=== PATIENT | female | born 1945 | race Caucasian/White ===

== ENCOUNTER → 2016-12-23 | Outpatient (REF) | payer MEDICARE, OTHER ==
[2016-12-23 13:42] LABS: CONTROL LINE MONO INT CTR LINE PRESENT
== END ==
LOC: M LAB REF 13:18
PROVIDERS: ATTEND Nurse Practitioner Family
DX: R53.83 Other fatigue (principal)

== ENCOUNTER → 2017-06-07 | Outpatient (CLI) | payer MEDICARE, OTHER ==
--- NOTE | 2017-06-07 15:57 | REPMRS ---
Patient History The patient states she has not had a clinical breast exam in over a year. Patient is postmenopausal. Family history of breast cancer in maternal aunt at age 50 or over, breast cancer in maternal grandmother at age 50 or over, and prostate cancer in brother at age 50 or over. 2 benign cyst aspirations of the left breast. Taking estrogen for 2 years 4 months. Digital Woman Screen Mammo: June 07, 2017 - Exam #: [id number] Bilateral CC and MLO view(s) were taken. Technologist: Dana Gonzales, Technologist Prior study comparison: June 02, 2016, digital woman screen mammo performed at [facility]. June 10, 2015, digital woman screen mammo performed at [facility] [employer] [facility]. June 09, 2014, digital woman screen mammo performed at [facility]. FINDINGS: There are scattered fibroglandular densities. There has been no change in the appearance of the mammogram from the prior studies. There is a mild amount of scattered fibroglandular density which is fairly symmetric. There is no interval development of dominant mass, architectural distortion, or clustered microcalcification suggestive of malignancy. ASSESSMENT: BI-RADS/ACR category 1 mammogram. Negative. Recommendation Routine screening mammogram in 1 year (for women over age 40). This mammogram was interpreted with the aid of an FDA-approved computer-aided dectection system. Electronically Signed By: Papo Russell MD 06/07/17 [id number]
== END ==
LOC: M WHC 13:45
PROVIDERS: ATTEND Internal Medicine
DX: Z12.31 Encounter for screening mammogram for malignant neoplasm of breast (principal); Z80.3 Family history of malignant neoplasm of breast; Z78.0 Asymptomatic menopausal state; Z80.42 Family history of malignant neoplasm of prostate; Z79.890 Hormone replacement therapy

== ENCOUNTER 2017-09-08 06:41 | Day surgery (SDC) | payer MEDICARE, OTHER ==
[2017-09-08] MEDS ORDERED: PROPOFOL 500 MG/50 ML VIAL As Ordered (06:56)
[2017-09-08] MEDS: NS 1,000 ML IV (07:00)
[2017-09-08] MEDS ORDERED: LIDOCAINE 2% INJ 100 MG/5 ML SDV (FOR ANES.) As Ordered (07:05)
== END 2017-09-08 08:23 | disposition home or self-care (01) ==
LOC: M OPP 06:41
DX: R93.3 Abnormal findings on diagnostic imaging of other parts of digestive tract (principal); Z86.010 Personal history of colon polyps; K64.0 First degree hemorrhoids; K21.9 Gastro-esophageal reflux disease without esophagitis; R12 Heartburn; K22.8 Other specified diseases of esophagus; K44.9 Diaphragmatic hernia without obstruction or gangrene; K57.30 Diverticulosis of large intestine without perforation or abscess without bleeding; K64.8 Other hemorrhoids; I10 Essential (primary) hypertension; E78.5 Hyperlipidemia, unspecified; M19.90 Unspecified osteoarthritis, unspecified site; F41.9 Anxiety disorder, unspecified; R51 Headache; Z78.0 Asymptomatic menopausal state; Z88.8 Allergy status to other drugs, medicaments and biological substances; Z79.82 Long term (current) use of aspirin; Z79.899 Other long term (current) drug therapy; Z80.0 Family history of malignant neoplasm of digestive organs; Z80.42 Family history of malignant neoplasm of prostate
CPT/HCPCS: 45378

== ENCOUNTER 2017-11-09 19:58 | Observation (INO) | payer MEDICARE, OTHER ==
[2017-11-09] MEDS: PERCOCET 5MG/325MG TAB PO ×2 (20:38)
[2017-11-09 20:59] LABS: AMORPHOUS SEDIMENT SMALL (NEGATIVE); APPEARANCE, URINE CLOUDY (CLEAR); BACTERIA, URINE AUTO NEGATIVE (NEGATIVE); BILIRUBIN, URINE AUTO NEGATIVE (NEGATIVE); BLOOD, URINE BLOOD NEGATIVE (NEGATIVE); COLOR, URINE YELLOW (YELLOW); GLUCOSE, URINE (UA) AUTO NEGATIVE (NEGATIVE); KETONE, URINE AUTO NEGATIVE (NEGATIVE); LEUKOCYTE ESTERASE, URINE AUTO TRACE (NEGATIVE); MUCUS, URINE SMALL (NEGATIVE); NITRITE, URINE AUTO NEGATIVE (NEGATIVE); PROTEIN, URINE AUTO NEGATIVE (NEGATIVE); RBC, URINE AUTO 2 /HPF (0-3); SPECIFIC GRAVITY URINE AUTO 1.012 (1.002-1.035); SQUAMOUS EPITHELIAL CELL UR AU 0 /HPF (0-6); UROBILINOGEN, URINE AUTO 0.2 mg/dL (0.0-2.0); WBC, URINE AUTO 2 /HPF (0-3)
[2017-11-09] MEDS: CYCLOBENZAPRINE 10 MG TAB PO ×2 (22:37)
[2017-11-09] MEDS: MORPHINE 4 MG/ML 1ML VIAL (J2270) IV ×2 (22:38)
[2017-11-09] MEDS: ONDANSETRON 4MG/2ML VIAL (J2405) IV ×2 (23:22)
[2017-11-10] MEDS ORDERED: ONDANSETRON 4 MG TAB (S0181) PO ×2
[2017-11-10] MEDS: fentaNYL 100 MCG/2 ML INJECTION (J3010) IV ×10 (00:25→08:00)
[2017-11-10] MEDS: METOCLOPRAMIDE INJ 10MG/2ML VIAL (J2765) IV ×2 (00:25)
[2017-11-10] MEDS: NS 1,000 ML IV ×6 (00:26→21:04)
[2017-11-10] MEDS: METOCLOPRAMIDE 10 MG TAB PO ×2 (04:44)
[2017-11-10] MEDS: HEPARIN SOD (PORCINE) 5000 UNITS/ML VIAL SC ×6 (06:00→21:04)
[2017-11-10] MEDS: ONDANSETRON 4MG/2ML VIAL (J2405) IV ×4 (09:19→14:53)
[2017-11-10] MEDS: MULTIVITAMINS/MINERALS THERAP 1 TAB PO ×2 (09:20)
[2017-11-10] MEDS: KETOROLAC 30 MG/ML VIAL (J1885) IV ×6 (09:20→21:03)
[2017-11-10] MEDS: PANTOPRAZOLE 40MG TAB (PROTONIX) PO ×2 (09:20)
[2017-11-10] MEDS: VERAPAMIL 40 MG TAB PO ×4 (09:21→21:04)
[2017-11-10] MEDS: ASCORBIC ACID 500 MG TAB PO ×2 (09:21)
[2017-11-10] MEDS: OMEGA-3 1050MG CAPSULE PO ×2 (09:21)
[2017-11-10] MEDS: ASPIRIN 81 MG ENTERIC TAB PO ×2 (09:21)
[2017-11-10 09:53] LABS: HEMATOCRIT 34.2 % (36.0-47.0); HEMOGLOBIN 11.6 g/dl (12.0-16.0); MEAN CORPUSCULAR HEMOGLOBIN 31.2 pg (27.0-33.0); MEAN CORPUSCULAR HGB CONC 33.9 g/dl (32.0-36.5); MEAN CORPUSCULAR VOLUME 91.9 fl (80.0-96.0); PLATELET COUNT, AUTOMATED 281 10^3/uL (150-450); RED BLOOD COUNT 3.72 10^6/uL (4.00-5.40); RED CELL DISTRIBUTION WIDTH 12.7 % (11.5-14.5); WHITE BLOOD COUNT 10.5 10^3/uL (4.0-10.0)
[2017-11-10 10:25] LABS: ANION GAP 6 MEQ/L (8-16); BLOOD UREA NITROGEN 14 MG/DL (7-18); CALCIUM LEVEL 8.6 MG/DL (8.8-10.2); CARBON DIOXIDE LEVEL 26 MEQ/L (21-32); CHLORIDE LEVEL 105 MEQ/L (98-107); CREATININE FOR GFR 0.64 MG/DL (0.55-1.30); GLOMERULAR FILTRATION RATE > 60.0 (>39); GLUCOSE, FASTING 125 MG/DL (70-100); POTASSIUM SERUM 4.2 MEQ/L (3.5-5.1); SODIUM LEVEL 137 MEQ/L (136-145)
[2017-11-10] MEDS: ACETAMINOPHEN 500 MG TAB PO ×4 (12:00→21:02)
[2017-11-10] MEDS ORDERED: PROMETHAZINE INJ 25 MG/ML VIAL (J2550) IV ×2 (17:45)
[2017-11-10] MEDS: ATORVASTATIN 20 MG TAB PO ×2 (18:00)
[2017-11-10] MEDS: GABAPENTIN 100 MG CAP PO ×2 (21:04)
[2017-11-11] MEDS: KETOROLAC 30 MG/ML VIAL (J1885) IV ×8 (02:28→21:27)
[2017-11-11] MEDS: HEPARIN SOD (PORCINE) 5000 UNITS/ML VIAL SC ×6 (05:19→21:27)
[2017-11-11] MEDS: ACETAMINOPHEN 500 MG TAB PO ×2 (05:20)
[2017-11-11 05:42] LABS: HEMATOCRIT 33.3 % (36.0-47.0); HEMOGLOBIN 11.2 g/dl (12.0-16.0); MEAN CORPUSCULAR HEMOGLOBIN 31.6 pg (27.0-33.0); MEAN CORPUSCULAR HGB CONC 33.6 g/dl (32.0-36.5); MEAN CORPUSCULAR VOLUME 94.1 fl (80.0-96.0); PLATELET COUNT, AUTOMATED 258 10^3/uL (150-450); RED BLOOD COUNT 3.54 10^6/uL (4.00-5.40); WHITE BLOOD COUNT 6.7 10^3/uL (4.0-10.0)
[2017-11-11] MEDS: NS 1,000 ML IV ×2 (06:07)
[2017-11-11 07:44] LABS: ANION GAP 7 MEQ/L (8-16); BLOOD UREA NITROGEN 12 MG/DL (7-18); CALCIUM LEVEL 8.4 MG/DL (8.8-10.2); CARBON DIOXIDE LEVEL 26 MEQ/L (21-32); CHLORIDE LEVEL 111 MEQ/L (98-107); CREATININE FOR GFR 0.62 MG/DL (0.55-1.30); GLOMERULAR FILTRATION RATE > 60.0 (>39); GLUCOSE, FASTING 81 MG/DL (70-100); POTASSIUM SERUM 3.8 MEQ/L (3.5-5.1); SODIUM LEVEL 144 MEQ/L (136-145)
[2017-11-11] MEDS: ONDANSETRON 4MG/2ML VIAL (J2405) IV ×2 (08:39)
[2017-11-11] MEDS: PANTOPRAZOLE 40MG TAB (PROTONIX) PO ×2 (09:22)
[2017-11-11] MEDS: MULTIVITAMINS/MINERALS THERAP 1 TAB PO ×2 (09:22)
[2017-11-11] MEDS: ASCORBIC ACID 500 MG TAB PO ×2 (09:22)
[2017-11-11] MEDS: GABAPENTIN 100 MG CAP PO ×6 (09:22→21:26)
[2017-11-11] MEDS: VERAPAMIL 40 MG TAB PO ×4 (09:22→21:25)
[2017-11-11] MEDS: OMEGA-3 1050MG CAPSULE PO ×2 (09:22)
[2017-11-11] MEDS: ASPIRIN 81 MG ENTERIC TAB PO ×2 (09:22)
[2017-11-11] MEDS: PERCOCET 5MG/325MG TAB PO ×4 (09:23→13:40)
[2017-11-11] MEDS: ATORVASTATIN 20 MG TAB PO ×2 (18:20)
[2017-11-12] MEDS: KETOROLAC 30 MG/ML VIAL (J1885) IV ×4 (03:17→08:54)
[2017-11-12] MEDS: HEPARIN SOD (PORCINE) 5000 UNITS/ML VIAL SC ×2 (05:26)
[2017-11-12] MEDS: PERCOCET 5MG/325MG TAB PO ×2 (06:00)
[2017-11-12 06:04] LABS: HEMATOCRIT 34.3 % (36.0-47.0); HEMOGLOBIN 11.6 g/dl (12.0-16.0); MEAN CORPUSCULAR HEMOGLOBIN 31.6 pg (27.0-33.0); MEAN CORPUSCULAR HGB CONC 33.8 g/dl (32.0-36.5); MEAN CORPUSCULAR VOLUME 93.5 fl (80.0-96.0); PLATELET COUNT, AUTOMATED 266 10^3/uL (150-450); RED BLOOD COUNT 3.67 10^6/uL (4.00-5.40); RED CELL DISTRIBUTION WIDTH 12.9 % (11.5-14.5); WHITE BLOOD COUNT 6.3 10^3/uL (4.0-10.0)
[2017-11-12 06:35] LABS: ANION GAP 7 MEQ/L (8-16); BLOOD UREA NITROGEN 10 MG/DL (7-18); CALCIUM LEVEL 8.6 MG/DL (8.8-10.2); CARBON DIOXIDE LEVEL 26 MEQ/L (21-32); CHLORIDE LEVEL 111 MEQ/L (98-107); CREATININE FOR GFR 0.61 MG/DL (0.55-1.30); GLOMERULAR FILTRATION RATE > 60.0 (>39); GLUCOSE, FASTING 92 MG/DL (70-100); POTASSIUM SERUM 3.6 MEQ/L (3.5-5.1); SODIUM LEVEL 144 MEQ/L (136-145)
[2017-11-12] MEDS: PANTOPRAZOLE 40MG TAB (PROTONIX) PO ×2 (08:52)
[2017-11-12] MEDS: ASPIRIN 81 MG ENTERIC TAB PO ×2 (08:52)
[2017-11-12] MEDS: VERAPAMIL 40 MG TAB PO ×2 (08:53)
[2017-11-12] MEDS: MULTIVITAMINS/MINERALS THERAP 1 TAB PO ×2 (08:53)
[2017-11-12] MEDS: GABAPENTIN 100 MG CAP PO ×2 (08:53)
[2017-11-12] MEDS: OMEGA-3 1050MG CAPSULE PO ×2 (08:53)
[2017-11-12] MEDS: ASCORBIC ACID 500 MG TAB PO ×2 (08:54)
[2017-11-12] MEDS: ACETAMINOPHEN 500 MG TAB PO ×2 (08:54)
== END 2017-11-12 09:20 | disposition home or self-care (01) ==
LOC: M ED INP 11-10 12:25 → M ED 19:58 → M MSPAV 11-10 12:25 → M ED INP 19:59 → M MSPAV 11-10 12:25
DX: S22.41XA Multiple fractures of ribs, right side, initial encounter for closed fracture (principal); W19.XXXA Unspecified fall, initial encounter; Y92.511 Restaurant or cafe as the place of occurrence of the external cause; Y99.9 Unspecified external cause status; Y93.89 Activity, other specified; I10 Essential (primary) hypertension; E78.4 Other hyperlipidemia; M85.9 Disorder of bone density and structure, unspecified; F41.9 Anxiety disorder, unspecified; G47.00 Insomnia, unspecified; Z79.82 Long term (current) use of aspirin; Z79.899 Other long term (current) drug therapy; Z91.81 History of falling
CPT/HCPCS: J2270

== ENCOUNTER 2018-02-18 14:21 | Emergency (ER) | payer MEDICARE, OTHER | END 2018-02-18 16:51 | disposition home or self-care (01) | LOC: M ED 14:21 | DX: G89.18 Other acute postprocedural pain (principal); M79.662 Pain in left lower leg; Z88.8 Allergy status to other drugs, medicaments and biological substances; Z79.899 Other long term (current) drug therapy; Z79.82 Long term (current) use of aspirin | CPT/HCPCS: 93970 ==

== ENCOUNTER → 2018-06-08 | Outpatient (CLI) | payer MEDICARE, OTHER | LOC: M WHC 08:06 | DX: Z12.31 Encounter for screening mammogram for malignant neoplasm of breast (principal); M85.80 Other specified disorders of bone density and structure, unspecified site; Z78.0 Asymptomatic menopausal state; Z80.3 Family history of malignant neoplasm of breast; Z79.890 Hormone replacement therapy; R92.8 Other abnormal and inconclusive findings on diagnostic imaging of breast | CPT/HCPCS: 77067 ==

== ENCOUNTER → 2018-06-14 | Outpatient (REF) | payer MEDICARE, OTHER ==
[2018-06-14 17:27] LABS: LIPASE 110 U/L (73-393)
[2018-06-14 17:27] LABS: AMYLASE 60 U/L (25-115)
[2018-06-15 12:48] LABS: CONTROL LINE HPYORI INT CTR LINE PRESENT; H PYLORI QUALITATIVE IgG NEGATIVE (NEGATIVE)
== END ==
LOC: M LAB REF 16:53
DX: R10.9 Unspecified abdominal pain (principal)
CPT/HCPCS: 82150

== ENCOUNTER → 2018-08-31 | Outpatient (REF) | payer MEDICARE, OTHER ==
[~2018-08-31] MED LIST: AMBI5TAB PO; ASPI1TAB PO; ASPI81TAEC PO; ATOR1TAB21 PO; BACITAB PO; CALC-190 PO; CALC500T44 PO; FISH100049 PO; FLUTISP; GABA-1171 PO; IBUP1TAB6 PO; MELO15TA28 PO; MULT1TAB10 PO; OXYC1TAB23 PO; PANT40TA3 PO; PROBCAP14 PO; RANI15TA PO; VERA40TA PO; VITA200016 PO; VITA500T PO; VITMTA PO; XANA0.5T PO; YUVA10TA3 VA; ZOFR4TAB14 PO
[2018-08-31 14:45] LABS: APPEARANCE, URINE HAZY (CLEAR); BACTERIA, URINE AUTO 1+ (NEGATIVE); BILIRUBIN, URINE AUTO NEGATIVE (NEGATIVE); BLOOD, URINE BLOOD NEGATIVE (NEGATIVE); COLOR, URINE YELLOW (YELLOW); GLUCOSE, URINE (UA) AUTO NEGATIVE (NEGATIVE); KETONE, URINE AUTO NEGATIVE (NEGATIVE); LEUKOCYTE ESTERASE, URINE AUTO 3+ (NEGATIVE); MUCUS, URINE SMALL (NEGATIVE); NITRITE, URINE AUTO NEGATIVE (NEGATIVE); PROTEIN, URINE AUTO NEGATIVE (NEGATIVE); RBC, URINE AUTO 2 /HPF (0-3); SQUAMOUS EPITHELIAL CELL UR AU 1 /HPF (0-6); UROBILINOGEN, URINE AUTO 0.2 mg/dL (0.0-2.0); WBC, URINE AUTO 108 /HPF (0-3)
== END ==
LOC: M LAB REF 14:10
PROVIDERS: ATTEND Physician Assistant Medical
DX: N39.0 Urinary tract infection, site not specified (principal)

== ENCOUNTER 2018-09-18 14:41 | Emergency (ER) | payer MEDICARE, OTHER ==
[~2018-09-18] VITALS: Ht 165.1 cm; Wt 65.9 kg
[2018-09-18] MEDS ORDERED: VERA120C3 PO (15:16)
[2018-09-18] MEDS ORDERED: OMEP20TA PO (15:20)
[2018-09-18 15:34] LABS: BASO % 0.5 % (0.0-1.0); EOS # 0.6 10^3/uL (0.0-0.50); EOS % 8.2 % (0.0-3.0); HEMATOCRIT 39.6 % (36.0-47.0); HEMOGLOBIN 13.4 g/dl (12.0-15.5); LYMPH # 3.1 10^3/uL (1.5-4.5); LYMPH % 39.8 % (24.0-44.0); MEAN CORPUSCULAR HEMOGLOBIN 31.9 pg (27.0-33.0); MEAN CORPUSCULAR HGB CONC 33.8 g/dl (32.0-36.5); MEAN CORPUSCULAR VOLUME 94.3 fl (80.0-96.0); MONO # 0.5 10^3/uL (0.0-0.8); MONO % 6.9 % (0.0-5.0); NEUTROPHILS # 3.4 10^3/uL (1.8-7.7); NEUTROPHILS % 44.2 % (36.0-66.0); PLATELET COUNT, AUTOMATED 302 10^3/uL (150-450); WHITE BLOOD COUNT 7.8 10^3/uL (4.0-10.0)
[2018-09-18 15:45] LABS: INR 0.88; PROTHROMBIN TIME 12.1 SECONDS (12.1-14.4)
[2018-09-18 15:46] LABS: PARTIAL THROMBOPLASTIN TIME 24.7 SECONDS (25.4-37.6)
--- NOTE | 2018-09-18 16:10 | REP ---
Chest x-ray: Two views. History: Chest pain . Comparison study: November 09, 2017 . Findings: The lungs are well inflated and free of infiltrate. The pleural angles are sharp. The heart size is normal. Pulmonary vasculature is not increased. There are old healed rib fractures on the right laterally. No significant bony abnormality is seen. Impression: Old healed right-sided rib fractures. Otherwise negative chest x-ray. Electronically Signed by Wily Russell MD 09/18/2018 04:02 P
[2018-09-18 16:27] LABS: BLOOD UREA NITROGEN 19 MG/DL (7-18); CALCIUM LEVEL 9.2 MG/DL (8.8-10.2); CARBON DIOXIDE LEVEL 27 MEQ/L (21-32); CHLORIDE LEVEL 106 MEQ/L (98-107); CPK CREATINE PHOSPHOKINASE 184 U/L (26-192); CREATININE FOR GFR 0.84 MG/DL (0.55-1.30); GLOMERULAR FILTRATION RATE > 60.0 (>39); GLUCOSE, FASTING 101 MG/DL (70-100); MB/CK RELATIVE INDEX 1.47 (< OR =4); POTASSIUM SERUM 3.9 MEQ/L (3.5-5.1); SODIUM LEVEL 140 MEQ/L (136-145); TROPONIN I < 0.02 NG/ML (< 0.10)
[2018-09-18] MEDS ORDERED: GI COCKTAIL 50ML BTL(HYOSCYAMINE/MAALOX/LIDOCAINE VISCOUS)(1:3:1) PO ONE (17:45)
[2018-09-18] MEDS ORDERED: SUCR1TA PO (18:14)
[2018-09-18 18:15] VITALS: BP 143/77
--- NOTE | 2018-09-19 17:40 | ECGEPIP ---
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
== END 2018-09-18 18:33 | disposition home or self-care (01) ==
LOC: M ED 14:41
DX: R07.89 Other chest pain (principal); R06.02 Shortness of breath; I10 Essential (primary) hypertension; E78.5 Hyperlipidemia, unspecified; M85.80 Other specified disorders of bone density and structure, unspecified site; Z87.891 Personal history of nicotine dependence; Z79.899 Other long term (current) drug therapy; Z79.82 Long term (current) use of aspirin; Z88.8 Allergy status to other drugs, medicaments and biological substances

== ENCOUNTER 2018-11-19 08:47 | Day surgery (SDC) | payer MEDICARE, OTHER ==
[~2018-11-19] VITALS: Ht 165.1 cm; Wt 67.6 kg
[~2018-11-19 08:47] MED LIST changes: +ACETAMINOPHEN 325 MG TAB PO PRN; +BSS with VANC/TOB/EPI for EYE CASES IR ONE; +CYCLOPENTOLATE 2% OPHTH SOLN 2ML BTL OS ONE; +HEALON DUET PRO(HEALON 10MG/ML 0.55ML & HEALON ENDOCOAT 30MG/ML 0.85ML) As Ordered ONE; +LIDOCAINE 1% SDV 5 ML VIAL As Ordered ONE; +LIDOCAINE 3.5 % 1ML OPHTH TOPICAL GEL OU ONE; +MOXIFLOXACIN IN BSS 0.25MG/0.25ML INTRACAMERAL INJ (OR EYE ONLY)(J2280) As Ordered ONE; +OFLOXACIN 0.3 % (OCUFLOX) OPTH SOL 5ML OS ONE; +OMEP20TA PO; +PHENYLEPHRINE 2.5% OPHTH SOL 2ML OS ONE; +PHENYLEPHRINE HCL 10 % OPHTH. SOL 5ML OS PRN; +POVIDONE-IODINE 5% OPHTH PREP SOL 30ML As Ordered ONE; +SUCR1TA PO; +TRIAMCINOLONE PRES FR 40 MG/ML 1ML(TRIESENCE)(OR EYE ONLY)(J3300 PER 1MG) As Ordered ONE; +TROPICAMIDE 1% OPHTH SOLN 2ML OS ONE; +VERA120C3 PO
[2018-11-19] MEDS ORDERED: MIDAZOLAM INJ 2 MG/2 ML VIAL (J2250) As Ordered ONE (09:49)
[2018-11-19] MEDS ORDERED: fentaNYL 100 MCG/2 ML INJECTION (J3010) As Ordered ONE (09:49)
[2018-11-19] MEDS ORDERED: LIDOCAINE 2% W/EPIN INJ 20ML **PRES FREE XX ONE (10:14)
[2018-11-19 10:45] VITALS: BP 138/63
[2018-11-19] MEDS ORDERED: NORCO, ANEXSIA 5/325MG TABLET (HYDROcodone/ACETAMINOPHEN) PO PRN (10:45)
[2018-11-19] MEDS ORDERED: LR 1,000 ML IV SCH (10:45)
[2018-11-19] MEDS ORDERED: TRIMETHOBENZAMIDE 300 MG CAP PO PRN (10:45)
[2018-11-19] MEDS ORDERED: AcetaZOLAMIDE 500 MG ER CAP PO ONE (10:45)
[2018-11-19] MEDS ORDERED: fentaNYL 100 MCG/2 ML INJECTION (J3010) IV PRN (10:45)
== END 2018-11-19 10:58 | disposition home or self-care (01) ==
LOC: M SDC 08:47
PROVIDERS: ATTEND Ophthalmology
DX: H26.9 Unspecified cataract (principal); I10 Essential (primary) hypertension; K21.9 Gastro-esophageal reflux disease without esophagitis; E78.5 Hyperlipidemia, unspecified; G43.909 Migraine, unspecified, not intractable, without status migrainosus; M12.9 Arthropathy, unspecified; F41.9 Anxiety disorder, unspecified; Z88.8 Allergy status to other drugs, medicaments and biological substances; Z91.048 Other nonmedicinal substance allergy status; Z79.899 Other long term (current) drug therapy; Z79.82 Long term (current) use of aspirin; Z78.0 Asymptomatic menopausal state
CPT/HCPCS: 66984; 92015; J2250; J2280; J3010; J3300; V2632

== ENCOUNTER 2018-12-17 08:50 | Day surgery (SDC) | payer MEDICARE, OTHER ==
[~2018-12-17] VITALS: Ht 165.1 cm; Wt 66.1 kg
[~2018-12-17 08:50] MED LIST changes: +ACETYLCHOLINE OPHTH SOLN 1% 2ML (MIOCHOL-E) As Ordered ONE; -ASPI1TAB PO; +ASPI81TA26 PO; +ASPI81TA85 PO; +AUGM875T28 PO; +CYCLOPENTOLATE 2% OPHTH SOLN 2ML BTL OD ONE; -CYCLOPENTOLATE 2% OPHTH SOLN 2ML BTL OS ONE; +FISH1000 PO; +LIDOCAINE 2% W/EPIN INJ 20ML **PRES FREE As Ordered ONE; +MIDAZOLAM INJ 2 MG/2 ML VIAL (J2250) As Ordered ONE; +OFLOXACIN 0.3 % (OCUFLOX) OPTH SOL 5ML OD ONE; -OFLOXACIN 0.3 % (OCUFLOX) OPTH SOL 5ML OS ONE; +PHENYLEPHRINE 2.5% OPHTH SOL 2ML OD ONE; -PHENYLEPHRINE 2.5% OPHTH SOL 2ML OS ONE; +PHENYLEPHRINE HCL 10 % OPHTH. SOL 5ML OD PRN; -PHENYLEPHRINE HCL 10 % OPHTH. SOL 5ML OS PRN; +TROPICAMIDE 1% OPHTH SOLN 2ML OD ONE; -TROPICAMIDE 1% OPHTH SOLN 2ML OS ONE; +fentaNYL 100 MCG/2 ML INJECTION (J3010) As Ordered ONE
[2018-12-17] MEDS ORDERED: LIDOCAINE 2% W/EPIN INJ 20ML **PRES FREE XX ONE (10:09)
[2018-12-17 10:18] VITALS: BP 155/82
[2018-12-17] MEDS ORDERED: ACETAMINOPHEN TAB 650MG DOSE (2X325MG) PO PRN (10:45)
[2018-12-17] MEDS ORDERED: TRIMETHOBENZAMIDE 300 MG CAP PO PRN (10:45)
[2018-12-17] MEDS ORDERED: AcetaZOLAMIDE 500 MG ER CAP PO ONE (10:45)
== END 2018-12-17 11:00 | disposition home or self-care (01) ==
LOC: M SDC 08:50
PROVIDERS: ATTEND Ophthalmology
DX: H25.9 Unspecified age-related cataract (principal); I10 Essential (primary) hypertension; E78.5 Hyperlipidemia, unspecified; K21.9 Gastro-esophageal reflux disease without esophagitis; Z79.52 Long term (current) use of systemic steroids; Z79.899 Other long term (current) drug therapy; F41.9 Anxiety disorder, unspecified
CPT/HCPCS: 66984; 92015; J2250; J2280; J3010; J3300; V2632

== ENCOUNTER → 2018-12-22 | Outpatient (REF) | payer MEDICARE, OTHER ==
[~2018-12-22] MED LIST changes: -ACETAMINOPHEN 325 MG TAB PO PRN; -ACETYLCHOLINE OPHTH SOLN 1% 2ML (MIOCHOL-E) As Ordered ONE; -BSS with VANC/TOB/EPI for EYE CASES IR ONE; -CYCLOPENTOLATE 2% OPHTH SOLN 2ML BTL OD ONE; -HEALON DUET PRO(HEALON 10MG/ML 0.55ML & HEALON ENDOCOAT 30MG/ML 0.85ML) As Ordered ONE; -LIDOCAINE 1% SDV 5 ML VIAL As Ordered ONE; -LIDOCAINE 2% W/EPIN INJ 20ML **PRES FREE As Ordered ONE; -LIDOCAINE 3.5 % 1ML OPHTH TOPICAL GEL OU ONE; -MIDAZOLAM INJ 2 MG/2 ML VIAL (J2250) As Ordered ONE; -MOXIFLOXACIN IN BSS 0.25MG/0.25ML INTRACAMERAL INJ (OR EYE ONLY)(J2280) As Ordered ONE; -OFLOXACIN 0.3 % (OCUFLOX) OPTH SOL 5ML OD ONE; -PHENYLEPHRINE 2.5% OPHTH SOL 2ML OD ONE; -PHENYLEPHRINE HCL 10 % OPHTH. SOL 5ML OD PRN; -POVIDONE-IODINE 5% OPHTH PREP SOL 30ML As Ordered ONE; -TRIAMCINOLONE PRES FR 40 MG/ML 1ML(TRIESENCE)(OR EYE ONLY)(J3300 PER 1MG) As Ordered ONE; -TROPICAMIDE 1% OPHTH SOLN 2ML OD ONE; -fentaNYL 100 MCG/2 ML INJECTION (J3010) As Ordered ONE
== END ==
LOC: M LAB REF 10:52
PROVIDERS: ATTEND Physician Assistant Medical
DX: N39.0 Urinary tract infection, site not specified (principal)

== ENCOUNTER 2019-05-28 22:33 | Emergency (ER) | payer MEDICARE, OTHER ==
[~2019-05-28] VITALS: Ht 165.1 cm; Wt 65.9 kg
[2019-05-28 22:33] VITALS: BP 144/81
[2019-05-28] MEDS ORDERED: hydrOXYzine 50 MG TAB PO STA (23:25)
[2019-05-28] MEDS ORDERED: predniSONE 20 MG TAB PO ONE (23:30)
== END 2019-05-28 23:35 | disposition home or self-care (01) ==
LOC: M ED 22:33
DX: T63.441A Toxic effect of venom of bees, accidental (unintentional), initial encounter (principal); M79.9 Soft tissue disorder, unspecified; X58.XXXA Exposure to other specified factors, initial encounter; W49.04XA Ring or other jewelry causing external constriction, initial encounter; Y92.89 Other specified places as the place of occurrence of the external cause; I10 Essential (primary) hypertension; E78.5 Hyperlipidemia, unspecified; R51 Headache; K21.9 Gastro-esophageal reflux disease without esophagitis; Z87.442 Personal history of urinary calculi; Z91.048 Other nonmedicinal substance allergy status; Z91.041 Radiographic dye allergy status; Z79.899 Other long term (current) drug therapy; Z79.82 Long term (current) use of aspirin; Z79.890 Hormone replacement therapy

== ENCOUNTER → 2019-06-07 | Outpatient (CLI) | payer MEDICARE, OTHER ==
[~2019-06-07] MED LIST changes: +OMEP-358 PO; -OMEP20TA PO
--- NOTE | 2019-06-07 09:05 | REPMRS ---
Patient History The patient states she has not had a clinical breast exam in over a year. Patient is postmenopausal. Family history of breast cancer at age 50 or over in maternal grandmother, breast cancer at age 50 or over in maternal aunt, prostate cancer at age 50 or over in brother. 2 benign cyst aspirations of the left breast. Took estrogen for 3 years 4 months. 3D TOMOSYNTHESIS WAS PERFORMED. The [facility] lifetime risk for breast cancer is 7.0%. Digital Woman Screen Mammo: June 07, 2019 - Exam #: [id number] Bilateral CC and MLO view(s) were taken. Technologist: Dana Gonzales, Technologist Prior study comparison: June 08, 2018, bilateral digital woman screen mammo performed at [facility]. June 07, 2017, digital woman screen mammo performed at [facility]. FINDINGS: The breast tissue is heterogeneously dense. This may lower the sensitivity of mammography. There has been no change in the appearance of the mammogram from the prior studies. There is a moderate amount of residual fibroglandular tissue which is fairly symmetric. There is no interval development of dominant mass, areas of architectural distortion, or clustered microcalcification typical of malignancy. Assessment: BI-RADS/ACR category 1 mammogram. Negative Mammogram. Recommendation Routine screening mammogram in 1 year (for women over age 40). This mammogram was interpreted with the aid of an FDA-approved computer-aided dectection system. Electronically Signed By: Kobi Bland MD 06/07/19 0905
== END ==
LOC: M WHC 07:58
PROVIDERS: ATTEND Nurse Practitioner Adult Health
DX: Z12.31 Encounter for screening mammogram for malignant neoplasm of breast (principal)

== ENCOUNTER 2020-04-30 10:57 | Emergency (ER) | payer MEDICARE, OTHER ==
[~2020-04-30] VITALS: Ht 165.1 cm; Wt 66.5 kg
[~2020-04-30 10:57] MED LIST changes: -ASPI81TA85 PO; +ASPI81TA86 PO; +PANT40TA29 PO; -PANT40TA3 PO; +VITA-243 PO; -VITA500T PO
--- NOTE | 2020-04-30 11:38 | REPVR ---
PROCEDURE INFORMATION: Exam: XR Chest, 1 View Exam date and time: 04/30/2020 11:28 AM Age: 75 years old Clinical indication: Chest pain; Type not specified TECHNIQUE: Imaging protocol: XR of the chest Views: 1 view. COMPARISON: CR Ribs uni W-PA CHEST ONLY RIGHT 11/09/2017 9:28 PM FINDINGS: Lungs: Unremarkable. No consolidation. Pleural space: Unremarkable. No pleural effusion. No pneumothorax. Heart/Mediastinum: Unremarkable. No cardiomegaly. Bones/joints: Unremarkable. IMPRESSION: No acute findings. Electronically signed by: Yohan Bae On 04/30/2020 11:38:03 AM
[2020-04-30 11:51] LABS: BASO % 0.5 % (0.0-1.0); EOS # 0.2 10^3/uL (0.0-0.5); EOS % 2.9 % (0.0-3.0); HEMATOCRIT 41.5 % (36.0-47.0); HEMOGLOBIN 13.8 g/dl (12.0-15.5); LYMPH # 2.6 10^3/uL (1.5-5.0); LYMPH % 33.8 % (24.0-44.0); MEAN CORPUSCULAR HEMOGLOBIN 31.9 pg (27.0-33.0); MEAN CORPUSCULAR HGB CONC 33.3 g/dl (32.0-36.5); MEAN CORPUSCULAR VOLUME 95.8 fl (80.0-96.0); MONO # 0.5 10^3/uL (0.0-0.8); MONO % 6.1 % (0.0-5.0); NEUTROPHILS # 4.3 10^3/uL (1.5-8.5); NEUTROPHILS % 56.4 % (36.0-66.0); PLATELET COUNT, AUTOMATED 339 10^3/uL (150-450); RED BLOOD COUNT 4.33 10^6/uL (4.00-5.40); WHITE BLOOD COUNT 7.7 10^3/uL (4.0-10.0)
[2020-04-30 12:01] LABS: INR 0.87
[2020-04-30 12:26] LABS: ALT/SGPT 39 U/L (12-78); BILIRUBIN,DIRECT 0.1 MG/DL (0.0-0.2); BILIRUBIN,TOTAL 0.6 MG/DL (0.2-1.0); BLOOD UREA NITROGEN 17 MG/DL (7-18); CALCIUM LEVEL 9.5 MG/DL (8.8-10.2); CARBON DIOXIDE LEVEL 28 MEQ/L (21-32); CHLORIDE LEVEL 107 MEQ/L (98-107); CK-MB VALUE MASS 2.7 NG/ML (<3.6); CPK CREATINE PHOSPHOKINASE 168 U/L (26-192); CREATININE FOR GFR 0.74 MG/DL (0.55-1.30); GLOMERULAR FILTRATION RATE > 60.0 (>39); GLUCOSE, FASTING 103 MG/DL (70-100); LIPASE 113 U/L (73-393); MB/CK RELATIVE INDEX 1.61 (< OR =4); NT-PRO BNP 149 PG/ML (<125); POTASSIUM SERUM 4.3 MEQ/L (3.5-5.1); SODIUM LEVEL 140 MEQ/L (136-145); TOTAL PROTEIN 6.8 GM/DL (6.4-8.2); TROPONIN I < 0.02 NG/ML (< 0.10)
[2020-04-30 13:28] LABS: D-DIMER QUANT 709.87 ng/ml (<500)
[2020-04-30] MEDS ORDERED: ISOVUE-370 76% 100ML VIAL As Ordered ONE (13:48)
--- NOTE | 2020-04-30 14:17 | REPVR ---
PROCEDURE INFORMATION: Exam: CT Angiography Chest With Contrast Exam date and time: 04/30/2020 1:58 PM Age: 75 years old Clinical indication: Chest pain; Additional info: Chest pain elevated d-dimer TECHNIQUE: Imaging protocol: Computed tomographic angiography of the chest with intravenous contrast. 3D rendering (Not supervised by radiologist): MIP and/or 3D reconstructed images were created by the technologist. Radiation optimization: All CT scans at this facility use at least one of these dose optimization techniques: automated exposure control; mA and/or kV adjustment per patient size (includes targeted exams where dose is matched to clinical indication); or iterative reconstruction. Contrast material: ISOVUE 370; Contrast volume: 75 ml; Contrast route: INTRAVENOUS (IV); COMPARISON: CR PORTABLE CHEST X-RAY 04/30/2020 11:26 AM FINDINGS: Pulmonary arteries: Normal. No pulmonary emboli. Aorta: The ascending aorta is ectatic up to 36 x 37 mm. There is no evidence of a dissection with good contrast. Lungs: Minimal scarring is seen involving the left lung base. Pleural space: Unremarkable. No pneumothorax. No pleural effusion. Heart: Unremarkable. No cardiomegaly. No pericardial effusion. Lymph nodes: Unremarkable. No enlarged lymph nodes. Bones/joints: [id number] arthritic changes are noted in the spine. Soft tissues: Unremarkable. IMPRESSION: 1. No pulmonary emboli. 2. Ectatic ascending aorta. Electronically signed by: Yohan Bae On 04/30/2020 14:16:18 PM
[2020-04-30 16:55] VITALS: BP 120/65
[2020-04-30 17:34] LABS: CK-MB VALUE MASS 1.6 NG/ML (<3.6); CPK CREATINE PHOSPHOKINASE 120 U/L (26-192); MB/CK RELATIVE INDEX 1.33 (< OR =4); TROPONIN I < 0.02 NG/ML (< 0.10)
--- NOTE | 2020-05-07 14:22 | ECGEPIP ---
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
--- NOTE | 2020-06-06 06:19 | ECGEPIP ---
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
== END 2020-04-30 19:19 | disposition home or self-care (01) ==
LOC: M ED 10:57
DX: R07.89 Other chest pain (principal); I10 Essential (primary) hypertension; E78.5 Hyperlipidemia, unspecified; R42 Dizziness and giddiness; Z87.891 Personal history of nicotine dependence; Z91.048 Other nonmedicinal substance allergy status; Z88.8 Allergy status to other drugs, medicaments and biological substances; Z79.899 Other long term (current) drug therapy; Z79.890 Hormone replacement therapy; Z79.82 Long term (current) use of aspirin
CPT/HCPCS: 71045; 71275; 80048; 80076; 82550; 82553; 83690; 83880; 84443; 84484; 85025; 85379; 85610; 93005; 93041; 94760; 99284; Q9967

== ENCOUNTER → 2020-06-17 | Outpatient (CLI) | payer MEDICARE, OTHER ==
--- NOTE | 2020-06-17 11:14 | REPMRS ---
Patient History The patient states she had a clinical breast exam in 03/2020. Family history of breast cancer at age 50 or over in maternal grandmother, breast cancer at age 50 or over in maternal aunt, prostate cancer at age 50 or over in brother. 2 benign cyst aspirations of the left breast. Took estrogen for 3 years 4 months. 3D TOMOSYNTHESIS WAS PERFORMED. The [facility] lifetime risk for breast cancer is 6.6%. Volpara breast density b. Digital Woman Screen Mammo: June 17, 2020 - Exam #: [id number] Bilateral CC and MLO view(s) were taken. Technologist: Dana Gonzales, Technologist Prior study comparison: June 07, 2019, bilateral digital woman screen mammo performed at [facility] [place]. June 08, 2018, bilateral digital woman screen mammo performed at [facility]. FINDINGS: There are scattered fibroglandular densities. There has been no change in the appearance of the mammogram from the prior studies. There is a mild amount of residual fibroglandular tissue which is fairly symmetric. There is no interval development of dominant mass, architectural distortion, or clustered microcalcification suggestive of malignancy. Assessment: BI-RADS/ACR category 1 mammogram. Negative Mammogram. Recommendation Routine screening mammogram in 1 year (for women over age 40). This mammogram was interpreted with the aid of an FDA-approved computer-aided dectection system. Electronically Signed By: Kobi Bland MD 06/17/20 [id number]
== END ==
LOC: M WHC 10:25
PROVIDERS: ATTEND Nurse Practitioner Adult Health
DX: Z12.31 Encounter for screening mammogram for malignant neoplasm of breast (principal)

== ENCOUNTER → 2020-08-03 | Outpatient (CLI) | payer SELFPAY | LOC: M LABSMTC 16:22 | PROVIDERS: ATTEND Pediatrics | DX: Z20.828 Contact with and (suspected) exposure to other viral communicable diseases (principal) ==

== ENCOUNTER → 2020-11-18 | Outpatient (CLI) | payer MEDICARE, OTHER ==
[~2020-11-18] MED LIST changes: +ASPI-569 PO; -ASPI81TAEC PO
--- NOTE | 2020-11-18 12:42 | DEXAMM ---
INDICATION: M81.0 AGE RELATED OSTEOPOROSIS. COMPARISON: 06/08/2018 as well as other prior exams. TECHNIQUE: Bone density was measured using dual-energy x-ray absorptiometry (DEXA). FINDINGS: AP SPINE L1-L4 BMD 0.859 g/cm2 Young Adult T-Score -2.7 Age Matched Z-Score -1.0. LT FEMUR, TOTAL BMD 0.813 g/cm2 Young Adult T-Score -1.5 Age Matched Z-Score 0.1. LT NECK BMD 0.714 g/cm2 Young Adult T-Score -2.3 Age Matched Z-Score -0.5. RT FEMUR, TOTAL BMD 0.810 g/cm2 Young Adult T-Score -1.6 Age Matched Z-Score 0.1. RT NECK BMD 0.735 g/cm2 Young Adult T-Score -2.2 Age Matched Z-Score -0.3. IMPRESSION: There is osteoporosis of the spine. There is low bone density of the left hip. There is low bone density of the right hip. The density of the spine has decreased 15.8% since the initial exam on 09/16/2008. The density of the spine decreased 7.7% since most recent exam on 06/08/2018. The density of the left hip has decreased 16.9% since initial exam on 09/16/2008. The density of the left hip has decreased 4.4% since most recent exam on 06/08/2018. The density of the right hip has decreased 11.0% since the initial exam on 09/16/2008. The density of the right hip has decreased 4.8% since the most recent exam on 06/08/2018. FOLLOW-UP: Recommendation for the next bone density exam: 2 years. <Electronically signed by Kobi Bland > 11/18/20 [id number]
== END ==
LOC: M WHC 10:28
PROVIDERS: ATTEND Internal Medicine
DX: M81.0 Age-related osteoporosis without current pathological fracture (principal); M85.851 Other specified disorders of bone density and structure, right thigh; M85.852 Other specified disorders of bone density and structure, left thigh

== ENCOUNTER → 2021-01-05 | Outpatient (REF) | payer MEDICARE, OTHER ==
[~2021-01-05] MED LIST changes: -CALC500T44 PO; +OYST500T92 PO
== END ==
LOC: M LAB REF 12:11
PROVIDERS: ATTEND Internal Medicine
DX: Z51.81 Encounter for therapeutic drug level monitoring (principal); Z79.899 Other long term (current) drug therapy

== ENCOUNTER → 2021-04-07 | Outpatient (REF) | payer MEDICARE, OTHER ==
[2021-04-07 11:56] LABS: APPEARANCE, URINE CLOUDY (CLEAR); BACTERIA, URINE AUTO NEGATIVE (NEGATIVE); BILIRUBIN, URINE AUTO NEGATIVE (NEGATIVE); BLOOD, URINE BLOOD 2+ (NEGATIVE); COLOR, URINE YELLOW (YELLOW); GLUCOSE, URINE (UA) AUTO NEGATIVE (NEGATIVE); KETONE, URINE AUTO TRACE mg/dL (NEGATIVE); LEUKOCYTE ESTERASE, URINE AUTO 3+ (NEGATIVE); MUCUS, URINE SMALL (NEGATIVE); NITRITE, URINE AUTO NEGATIVE (NEGATIVE); PROTEIN, URINE AUTO 2+ mg/dL (NEGATIVE); RBC, URINE AUTO TNTC /HPF (0-3); SPECIFIC GRAVITY URINE AUTO 1.025 (1.002-1.035); SQUAMOUS EPITHELIAL CELL UR AU 1 /HPF (0-6); UROBILINOGEN, URINE AUTO 0.2 mg/dL (0.0-2.0); WBC, URINE AUTO TNTC /HPF (0-3)
== END ==
LOC: M LAB REF 11:18
PROVIDERS: ATTEND Physician Assistant
DX: R30.0 Dysuria (principal)

== ENCOUNTER → 2021-05-19 | Outpatient (CLI) | payer MEDICARE, OTHER ==
--- NOTE | 2021-05-20 07:30 | REP ---
INDICATION: BILAT KNEE PAIN. COMPARISON: Left knee 10/03/2017, right knee 07/08/2015. TECHNIQUE: Three views bilateral knees performed. FINDINGS: There is no fracture or dislocation bilaterally. Mild diffuse joint space narrowing is seen on the right with mild marginal spurring. There is mild subchondral sclerosis in the medial tibial plateau. There is moderate spurring of the superior pole of the patella. There is moderate lateral patellofemoral joint space narrowing with subchondral sclerosis. A smoothly marginated calcific density along the lateral margin of the lateral patellar facet measures 6 mm in maximum diameter. There is a moderate suprapatellar effusion. On the left there is moderately severe medial joint space narrowing with marginal spurring and subchondral sclerosis. There is moderate spurring of the superior pole of patella and mild spurring of the lateral patellar facet. There is mild patellofemoral joint space narrowing medially with subchondral sclerosis. There is a moderate suprapatellar effusion. IMPRESSION: Progressive bilateral degenerative changes compared to prior studies, more so on the left than on the right. Moderate bilateral suprapatellar effusions. <Electronically signed by Kobi Bland > 05/19/21 [id number]
== END ==
LOC: M SOG 13:28
PROVIDERS: ATTEND Orthopaedic Surgery Adult Reconstructive Orthopaedic Surgery
DX: M25.562 Pain in left knee (principal); M25.561 Pain in right knee; M17.0 Bilateral primary osteoarthritis of knee

== ENCOUNTER → 2021-06-02 | Outpatient (REF) | payer MEDICARE, OTHER ==
[2021-06-02 16:59] LABS: APPEARANCE, URINE CLOUDY (CLEAR); BACTERIA, URINE AUTO NEGATIVE (NEGATIVE); BILIRUBIN, URINE AUTO NEGATIVE (NEGATIVE); BLOOD, URINE BLOOD NEGATIVE (NEGATIVE); COLOR, URINE YELLOW (YELLOW); GLUCOSE, URINE (UA) AUTO NEGATIVE (NEGATIVE); KETONE, URINE AUTO TRACE mg/dL (NEGATIVE); LEUKOCYTE ESTERASE, URINE AUTO 3+ (NEGATIVE); MUCUS, URINE SMALL (NEGATIVE); NITRITE, URINE AUTO NEGATIVE (NEGATIVE); PROTEIN, URINE AUTO 1+ mg/dL (NEGATIVE); RBC, URINE AUTO 10 /HPF (0-3); SPECIFIC GRAVITY URINE AUTO 1.029 (1.002-1.035); SQUAMOUS EPITHELIAL CELL UR AU 0 /HPF (0-6); WBC, URINE AUTO TNTC /HPF (0-3)
== END ==
LOC: M LAB REF 16:38
PROVIDERS: ATTEND Physician Assistant
DX: R30.0 Dysuria (principal)

== ENCOUNTER → 2021-06-18 | Outpatient (REF) | payer MEDICARE, OTHER | LOC: M LAB REF 12:18 | PROVIDERS: ATTEND Internal Medicine | DX: Z51.81 Encounter for therapeutic drug level monitoring (principal) ==

== ENCOUNTER → 2021-06-22 | Outpatient (CLI) | payer MEDICARE, OTHER ==
--- NOTE | 2021-06-22 13:49 | REPMRS ---
Patient History The patient states she has not had a clinical breast exam in over a year. Patient is postmenopausal. Family history of breast cancer at age 50 or over in maternal grandmother, breast cancer at age 50 or over in maternal aunt, prostate cancer at age 50 or over in brother. 2 benign cyst aspirations of the left breast. Took estrogen for 3 years 4 months. Patient states no breast complaints today. Patient has signed MRS History Sheet. Digital Woman Screen Mammo: June 22, 2021 - Exam #: [id number] Bilateral CC and MLO view(s) were taken. Technologist: Cathy Parrish, Technologist Prior study comparison: June 17, 2020, bilateral digital woman screen mammo performed at [facility]. March 2020, right breast digital mammo diagnostic unilateral, performed at [facility]. FINDINGS: There are scattered fibroglandular densities. Screening. Digital screening (2D) mammography was performed bilaterally in the CC and MLO projections. Additionally, breast tomosynthesis (3D mammography) was performed bilaterally in the CC and MLO projections. Todays exam was compared to the prior exam/exams. By history, the patient has no complaints of a palpable breast abnormality or other significant breast complaints. The Volpara volumetric breast density category is B, there are scattered areas of fibroglandular densities. The breasts are unchanged in size and shape. There are no kiet-soft tissue densities or spiculated masses. There is no internal architectural distortion. There are no suspicious kiet-calcific clusters. Skin thickening or nipple retraction is not present. IMPRESSION: BI-RADS Category 2- Benign Findings. There is no evidence of malignant alteration of the breasts. Followup examination recommended in one year. The lifetime Tyrer-Cuzick score is 6.1% This mammogram was read with the assistance of [employer],an FDA approved computer aided detection system for mammography. Negative x-ray reports should not delay surgical consultation if a dominant or clinically suspicious mass is present. Not all breast cancers can be identified by mammography. Therefore, we recommend that you continue to perform regular breast self-examination and physical examination and then promptly contact your physician of any concerns or changes. Adenosis and dense breasts may obscure an underlying neoplasm. No significant changes when compared with prior studies. Assessment: BI-RADS/ACR category 2 mammogram. Benign Findings. Recommendation Routine screening mammogram of both breasts in 1 year. Electronically Signed By: Brennen Villagran MD 06/22/21 [id number]
== END ==
LOC: M WHC 07:02
PROVIDERS: ATTEND Nurse Practitioner Adult Health
DX: Z12.31 Encounter for screening mammogram for malignant neoplasm of breast (principal); Z78.0 Asymptomatic menopausal state; Z80.3 Family history of malignant neoplasm of breast

== ENCOUNTER → 2021-10-10 | Outpatient (REF) | payer MEDICARE, OTHER | LOC: M LAB REF 10:03 | PROVIDERS: ATTEND Physician Assistant | DX: N39.0 Urinary tract infection, site not specified (principal) ==

== ENCOUNTER → 2021-10-18 | Outpatient (CLI) | payer MEDICARE, OTHER | LOC: M PLAIMG 14:35 | PROVIDERS: ATTEND Internal Medicine | DX: J98.4 Other disorders of lung (principal) ==

== ENCOUNTER → 2021-11-26 | Outpatient (REF) | payer MEDICARE, OTHER | LOC: M LAB REF 16:24 | PROVIDERS: ATTEND Internal Medicine | DX: Z51.81 Encounter for therapeutic drug level monitoring (principal) ==

== ENCOUNTER 2021-12-12 16:16 | Emergency (ER) | payer MEDICARE, OTHER ==
[~2021-12-12] VITALS: Ht 165.1 cm; Wt 67.3 kg
[2021-12-12 16:17] VITALS: BP 160/76
[2021-12-12 17:00] LABS: BASO # 0.1 10^3/uL (0.0-0.2); BASO % 0.7 % (0.0-1.0); EOS # 0.5 10^3/uL (0.0-0.5); EOS % 7.7 % (0.0-3.0); HEMATOCRIT 39.9 % (36.0-47.0); HEMOGLOBIN 13.1 g/dl (12.0-15.5); LYMPH # 3.3 10^3/uL (1.5-5.0); LYMPH % 46.1 % (24.0-44.0); MEAN CORPUSCULAR HEMOGLOBIN 32.4 pg (27.0-33.0); MEAN CORPUSCULAR HGB CONC 32.8 g/dl (32.0-36.5); MEAN CORPUSCULAR VOLUME 98.8 fl (80.0-96.0); MONO # 0.5 10^3/uL (0.0-0.8); NEUTROPHILS # 2.7 10^3/uL (1.5-8.5); NEUTROPHILS % 38.4 % (36.0-66.0); PLATELET COUNT, AUTOMATED 331 10^3/uL (150-450); RED BLOOD COUNT 4.04 10^6/uL (4.00-5.40); WHITE BLOOD COUNT 7.1 10^3/uL (4.0-10.0)
[2021-12-12 17:11] LABS: INR 0.87; PROTHROMBIN TIME 12.2 SECONDS (12.7-14.5)
[2021-12-12 17:27] LABS: ALBUMIN 3.8 GM/DL (3.2-5.2); ALT/SGPT 34 U/L (12-78); BILIRUBIN,DIRECT < 0.1 MG/DL (0.0-0.2); BILIRUBIN,TOTAL 0.2 MG/DL (0.2-1.0); BLOOD UREA NITROGEN 17 MG/DL (7-18); CALCIUM LEVEL 9.4 MG/DL (8.8-10.2); CARBON DIOXIDE LEVEL 28 MEQ/L (21-32); CHLORIDE LEVEL 109 MEQ/L (98-107); CK-MB VALUE MASS 2.1 NG/ML (<3.6); CREATININE FOR GFR 0.88 MG/DL (0.55-1.30); GLOMERULAR FILTRATION RATE > 60.0 (>39); GLUCOSE, FASTING 104 MG/DL (70-100); LIPASE 122 U/L (73-393); MB/CK RELATIVE INDEX 1.49 (< OR =4); POTASSIUM SERUM 4.6 MEQ/L (3.5-5.1); SODIUM LEVEL 142 MEQ/L (136-145); TOTAL PROTEIN 6.5 GM/DL (6.4-8.2)
[2021-12-12] MEDS ORDERED: CARA1TAB6 PO (17:37)
== END 2021-12-12 18:40 | disposition home or self-care (01) ==
LOC: M ED 16:16
DX: K21.9 Gastro-esophageal reflux disease without esophagitis (principal); R07.9 Chest pain, unspecified; I10 Essential (primary) hypertension; E78.5 Hyperlipidemia, unspecified

== ENCOUNTER → 2021-12-29 | Outpatient (REF) | payer MEDICARE, OTHER ==
[~2021-12-29] MED LIST changes: +CARA1TAB6 PO
== END ==
LOC: M LAB REF 16:34
PROVIDERS: ATTEND Physician Assistant Medical
DX: R10.13 Epigastric pain (principal)

== ENCOUNTER → 2022-03-27 | Outpatient (CLI) | payer MEDICARE, OTHER ==
[~2022-03-27] MED LIST changes: +CALCCAP4 PO; +MAGN250T7 PO; +PROL60SO SQ; +VITA100093 PO
== END ==
LOC: M LABSMTC 10:20
PROVIDERS: ATTEND Anesthesiology
DX: Z01.812 Encounter for preprocedural laboratory examination (principal); Z20.822 Contact with and (suspected) exposure to COVID-19

== ENCOUNTER 2022-03-31 08:33 | Day surgery (SDC) | payer MEDICARE, OTHER ==
[~2022-03-31] VITALS: Ht 165.1 cm; Wt 68.4 kg
[~2022-03-31 08:33] MED LIST changes: +dexameTHASONE 4 MG/ML 1ML VIAL (J1100 PER 1MG) IV ONE
[2022-03-31] MEDS ORDERED: LR 1,000 ML IV SCH ×2 (09:00→12:10)
[2022-03-31] MEDS ORDERED: MYRB25TA PO (09:05)
[2022-03-31] MEDS ORDERED: LIDOCAINE W/EPINEPHRINE 1% 20ML VIAL As Ordered ONE (10:52)
[2022-03-31] MEDS ORDERED: LIDOCAINE 2% 100MG/5ML SDV (FOR ANES.) As Ordered ONE (11:28)
[2022-03-31] MEDS ORDERED: propofoL 200 MG/20 ML VIAL As Ordered ONE (11:28)
[2022-03-31] MEDS ORDERED: SUGAMMADEX SODIUM 500 MG/5 ML VIAL (BRIDION) As Ordered ONE (11:28)
[2022-03-31] MEDS ORDERED: ROCURONIUM BROMIDE 50 MG/5 ML VIAL As Ordered ONE (11:28)
[2022-03-31] MEDS ORDERED: MIDAZOLAM INJ 2MG/2ML VIAL (J2250 PER 1MG) As Ordered ONE (11:28)
[2022-03-31] MEDS ORDERED: dexameTHASONE 4 MG/ML 1ML VIAL (J1100 PER 1MG) As Ordered ONE (11:28)
[2022-03-31] MEDS ORDERED: ONDANSETRON 4MG 2ML VIAL As Ordered ONE (11:28)
[2022-03-31] MEDS ORDERED: fentaNYL 100 MCG/2 ML INJECTION As Ordered ONE (11:28)
[2022-03-31] MEDS ORDERED: ePHEDrine SULFATE 25 MG/5 ML(5MG/ML) SYRINGE As Ordered ONE (11:28)
[2022-03-31] MEDS ORDERED: KETOROLAC 60MG 2ML VIAL As Ordered ONE (11:35)
[2022-03-31] MEDS ORDERED: ACETAMINOPHEN 1000MG 100ML IV BTL (OFIRMEV) (J0131 PER 10MG) As Ordered ONE (11:35)
[2022-03-31] MEDS ORDERED: LIDOCAINE 5% OINT 30GM TUBE As Ordered ONE (11:38)
[2022-03-31] MEDS ORDERED: ONDANSETRON 4MG 2ML VIAL IV PRN (12:10)
[2022-03-31] MEDS ORDERED: fentaNYL 100 MCG/2 ML INJECTION IV PRN (12:10)
[2022-03-31] MEDS ORDERED: oxyCODONE 5MG TAB PO PRN (12:10)
[2022-03-31 13:25] VITALS: BP 144/80
== END 2022-03-31 13:35 | disposition home or self-care (01) ==
LOC: M SDC 08:33
PROVIDERS: ATTEND Otolaryngology
DX: K13.21 Leukoplakia of oral mucosa, including tongue (principal); I10 Essential (primary) hypertension; E78.00 Pure hypercholesterolemia, unspecified; K21.9 Gastro-esophageal reflux disease without esophagitis; K44.9 Diaphragmatic hernia without obstruction or gangrene; Z79.899 Other long term (current) drug therapy; Z91.048 Other nonmedicinal substance allergy status; Z88.8 Allergy status to other drugs, medicaments and biological substances
CPT/HCPCS: 41100; 88305; 88312; 88313; J0131; J1100; J1885; J2250; J2405; J3010

== ENCOUNTER → 2022-05-27 | Outpatient (REF) | payer MEDICARE, OTHER ==
[~2022-05-27] MED LIST changes: +MYRB25TA PO; -dexameTHASONE 4 MG/ML 1ML VIAL (J1100 PER 1MG) IV ONE
== END ==
LOC: M LAB REF 16:08
PROVIDERS: ATTEND Internal Medicine
DX: Z51.81 Encounter for therapeutic drug level monitoring (principal)

== ENCOUNTER → 2022-06-05 | Outpatient (CLI) | payer MEDICARE, OTHER ==
[~2022-06-05] MED LIST changes: +ACET-683 PO; +KP F1200 PO; +VIBE75TA PO; +[UNRECOGNIZED DRUG - CODE] PO
== END ==
LOC: M LABSMTC 11:00
PROVIDERS: ATTEND Anesthesiology
DX: Z01.812 Encounter for preprocedural laboratory examination (principal); Z20.822 Contact with and (suspected) exposure to COVID-19

== ENCOUNTER 2022-06-08 10:52 | Day surgery (SDC) | payer MEDICARE, OTHER ==
[~2022-06-08] VITALS: Ht 165.1 cm; Wt 67.8 kg
[~2022-06-08 10:52] MED LIST changes: +NS 1,000 ML IV ONE
[2022-06-08] MEDS ORDERED: LIDOCAINE 2% 100MG/5ML SDV (FOR ANES.) As Ordered ONE (11:20)
[2022-06-08] MEDS ORDERED: propofoL 200 MG/20 ML VIAL As Ordered ONE (11:20)
[2022-06-08] MEDS ORDERED: fentaNYL 100 MCG/2 ML INJECTION As Ordered ONE (11:48)
[2022-06-08 12:39] VITALS: BP 127/72
== END 2022-06-08 12:56 | disposition home or self-care (01) ==
LOC: M OPP 10:52
PROVIDERS: ATTEND Internal Medicine Gastroenterology
DX: Z12.11 Encounter for screening for malignant neoplasm of colon (principal); Z86.010 Personal history of colon polyps; Z80.0 Family history of malignant neoplasm of digestive organs; K64.0 First degree hemorrhoids; K57.30 Diverticulosis of large intestine without perforation or abscess without bleeding; K22.89 Other specified disease of esophagus; Z79.02 Long term (current) use of antithrombotics/antiplatelets; Z79.82 Long term (current) use of aspirin; Z79.83 Long term (current) use of bisphosphonates; Z79.899 Other long term (current) drug therapy; Z91.041 Radiographic dye allergy status; Z91.048 Other nonmedicinal substance allergy status; Z88.8 Allergy status to other drugs, medicaments and biological substances; Z87.891 Personal history of nicotine dependence; I10 Essential (primary) hypertension; E78.00 Pure hypercholesterolemia, unspecified; G43.909 Migraine, unspecified, not intractable, without status migrainosus; M13.89 Other specified arthritis, multiple sites; N39.498 Other specified urinary incontinence; Z80.42 Family history of malignant neoplasm of prostate
CPT/HCPCS: 43239; 88305; G0105; J3010

== ENCOUNTER → 2022-06-24 | Outpatient (CLI) | payer MEDICARE, OTHER ==
[~2022-06-24] MED LIST changes: -NS 1,000 ML IV ONE
== END ==
LOC: M WHC 09:25
PROVIDERS: ATTEND Internal Medicine
DX: Z12.31 Encounter for screening mammogram for malignant neoplasm of breast (principal); N63.21 Unspecified lump in the left breast, upper outer quadrant

== ENCOUNTER → 2022-07-06 | Outpatient (CLI) | payer MEDICARE, OTHER | LOC: M WHC 12:56 | PROVIDERS: ATTEND Internal Medicine | DX: R92.8 Other abnormal and inconclusive findings on diagnostic imaging of breast (principal); N63.21 Unspecified lump in the left breast, upper outer quadrant ==

== ENCOUNTER → 2022-07-28 | Outpatient (CLI) | payer MEDICARE, OTHER ==
[~2022-07-28] MED LIST changes: +**SFHN** LIDOCAINE 1% MDV 20ML VIAL ONE; +**SFHN** SODIUM BICARBONATE 8.4% 10MEQ 10ML VIAL ONE; +ASPI81CH33 PO
[2022-07-28 13:43] VITALS: BP 118/82
== END ==
LOC: M WHCPRO 12:22
PROVIDERS: ATTEND Nurse Practitioner Adult Health
DX: N63.21 Unspecified lump in the left breast, upper outer quadrant (principal)

== ENCOUNTER → 2022-10-04 | Outpatient (CLI) | payer MEDICARE, OTHER ==
[~2022-10-04] MED LIST changes: -**SFHN** LIDOCAINE 1% MDV 20ML VIAL ONE; -**SFHN** SODIUM BICARBONATE 8.4% 10MEQ 10ML VIAL ONE
== END ==
LOC: M RAD 10:53
PROVIDERS: ATTEND Internal Medicine
DX: R10.31 Right lower quadrant pain (principal)

== ENCOUNTER → 2022-11-07 | Outpatient (REF) | payer MEDICARE, OTHER | LOC: M LAB REF 12:01 | PROVIDERS: ATTEND Internal Medicine | DX: Z79.899 Other long term (current) drug therapy (principal) ==

== ENCOUNTER 2023-01-06 17:46 | Emergency (ER) | payer MEDICARE, OTHER ==
[~2023-01-06] VITALS: Ht 165.1 cm; Wt 68.2 kg
[~2023-01-06 17:46] MED LIST changes: +FLUT50SP17; -FLUTISP
[2023-01-06] MEDS ORDERED: LIDOCAINE 4% CREAM 5GM (LMX4) TOP ONE (19:00)
[2023-01-06] MEDS ORDERED: ACETAMINOPHEN 500 MG TAB PO ONE (19:00)
[2023-01-06 20:53] VITALS: BP 144/79
== END 2023-01-06 21:02 | disposition home or self-care (01) ==
LOC: M ED 17:46
DX: S62.306A Unspecified fracture of fifth metacarpal bone, right hand, initial encounter for closed fracture (principal); X50.0XXA Overexertion from strenuous movement or load, initial encounter; Y92.89 Other specified places as the place of occurrence of the external cause; Y93.01 Activity, walking, marching and hiking; Y99.8 Other external cause status; Z88.8 Allergy status to other drugs, medicaments and biological substances; Z79.899 Other long term (current) drug therapy; Z79.82 Long term (current) use of aspirin

== ENCOUNTER → 2023-05-11 | Outpatient (REF) | payer MEDICARE, OTHER | LOC: M LAB REF 16:54 | PROVIDERS: ATTEND Internal Medicine | DX: M81.0 Age-related osteoporosis without current pathological fracture (principal) ==

== ENCOUNTER → 2023-08-04 | Outpatient (REF) | payer MEDICARE, OTHER ==
[~2023-08-04] MED LIST changes: +CHLO125TA PO; -FLUT50SP17; +FLUTISP; +SPIR-10 PO
== END ==
LOC: M LAB REF 10:04
PROVIDERS: ATTEND Nurse Practitioner Adult Health
DX: R19.7 Diarrhea, unspecified (principal)

== ENCOUNTER 2023-08-07 09:38 | Emergency (ER) | payer MEDICARE, OTHER ==
[~2023-08-07] VITALS: Ht 165.1 cm; Wt 69.3 kg
[~2023-08-07 09:38] MED LIST changes: -CHLO125TA PO; -SPIR-10 PO
[2023-08-07 12:26] LABS: BASO % 0.4 % (0.0-1.0); EOS # 0.5 10^3/uL (0.0-0.5); EOS % 6.9 % (0.0-3.0); HEMOGLOBIN 13.6 g/dl (12.0-15.5); LYMPH # 2.4 10^3/uL (1.5-5.0); LYMPH % 34.7 % (24.0-44.0); MEAN CORPUSCULAR HGB CONC 33.2 g/dl (32.0-36.5); MEAN CORPUSCULAR VOLUME 96.5 fl (80.0-96.0); MONO # 0.5 10^3/uL (0.0-0.8); MONO % 6.7 % (2.0-8.0); NEUTROPHILS # 3.5 10^3/uL (1.5-8.5); NEUTROPHILS % 51.2 % (36.0-66.0); PLATELET COUNT, AUTOMATED 409 10^3/uL (150-450); RED BLOOD COUNT 4.25 10^6/uL (4.00-5.40); WHITE BLOOD COUNT 6.9 10^3/uL (4.0-10.0)
[2023-08-07 12:31] LABS: INR 1.01
[2023-08-07 12:32] LABS: PARTIAL THROMBOPLASTIN TIME 23.5 SECONDS (24.8-34.2)
[2023-08-07 12:36] LABS: LIPASE 28 U/L (12-53)
[2023-08-07 12:37] LABS: CK-MB VALUE MASS < 1.0 NG/ML (<3.6); CPK CREATINE PHOSPHOKINASE 105 U/L (34-145); MB/CK RELATIVE INDEX 0.95 (< OR =4)
[2023-08-07 12:38] LABS: ALKALINE PHOSPHATASE 50 U/L (46-116); ALT/SGPT 27 U/L (7.0-40); AST/SGOT 16 U/L (<34); BILIRUBIN,DIRECT 0.2 MG/DL (<0.4); BILIRUBIN,TOTAL 0.5 MG/DL (0.3-1.2); BLOOD UREA NITROGEN 11 MG/DL (9-23); CALCIUM LEVEL 9.5 MG/DL (8.3-10.6); CARBON DIOXIDE LEVEL 27 MMOL/L (20-31); CHLORIDE LEVEL 108 MMOL/L (98-107); CREATININE FOR GFR 0.67 MG/DL (0.55-1.30); GLOMERULAR FILTRATION RATE > 60.0 (>39); GLUCOSE, FASTING 103 MG/DL (74-106); POTASSIUM SERUM 4.3 MMOL/L (3.5-5.1); SODIUM LEVEL 145 MMOL/L (136-145); TOTAL PROTEIN 6.4 G/DL (5.7-8.2)
[2023-08-07 12:41] LABS: THYROID STIMULATING HORMONE 0.619 uIU/ML (0.55-4.78)
[2023-08-07 12:43] LABS: FREE T4 1.02 NG/DL (0.89-1.76)
[2023-08-07 13:24] LABS: RSV AMPLIFICATION NEGATIVE (NEGATIVE)
[2023-08-07] MEDS ORDERED: NITROGLYCERIN 0.4MG SUBL TABLET SL STA (13:34)
[2023-08-07] MEDS ORDERED: MAALOX 30 ML SUSP *UDC PO ONE (13:35)
[2023-08-07] MEDS ORDERED: PANTOPRAZOLE 40MG VIAL IV ONE (13:35)
[2023-08-07] MEDS ORDERED: ISOVUE-370 76% 100ML VIAL As Ordered ONE (13:46)
[2023-08-07 13:56] LABS: MAGNESIUM LEVEL 2.1 MG/DL (1.8-2.4)
[2023-08-07 14:07] LABS: CK-MB VALUE MASS < 1.0 NG/ML (<3.6)
[2023-08-07 14:09] LABS: CPK CREATINE PHOSPHOKINASE 95 U/L (34-145); MB/CK RELATIVE INDEX 1.05 (< OR =4)
[2023-08-07] MEDS ORDERED: VERAPAMIL 120MG SR TAB PO ONE (15:00)
[2023-08-07 15:34] VITALS: BP 154/73
[2023-08-07 15:38] VITALS: O2SAT 98
[2023-08-07] MEDS ORDERED: SPIR-10 PO (16:15)
[2023-08-07] MEDS ORDERED: CHLO125TA PO (16:17)
[2023-08-07 16:46] VITALS: BP 155/66; TEMP 97.8; O2SAT 98
== END 2023-08-07 16:58 | disposition home or self-care (01) ==
LOC: M ED 09:38
DX: I10 Essential (primary) hypertension (principal); K21.9 Gastro-esophageal reflux disease without esophagitis; Z85.3 Personal history of malignant neoplasm of breast; Z87.891 Personal history of nicotine dependence; Z79.82 Long term (current) use of aspirin; Z79.899 Other long term (current) drug therapy; Z88.8 Allergy status to other drugs, medicaments and biological substances; Z91.89 Other specified personal risk factors, not elsewhere classified
CPT/HCPCS: 71045; 71275; 74177; 80048; 80076; 82550; 82553; 83690; 83735; 83880; 84439; 84443; 84484; 85025; 85610; 85730; 87631; 93005; 93041; 94760; 96374; 99285; C9113; Q9967

== ENCOUNTER → 2023-09-05 | Outpatient (CLI) | payer MEDICARE, OTHER ==
[~2023-09-05] MED LIST changes: +CHLO125TA PO; +SPIR-10 PO
[2023-09-05 17:26] LABS: BASO % 0.3 % (0.0-1.0); EOS # 0.2 10^3/uL (0.0-0.5); EOS % 1.6 % (0.0-3.0); HEMATOCRIT 39.6 % (36.0-47.0); HEMOGLOBIN 13.3 g/dl (12.0-15.5); LYMPH # 2.7 10^3/uL (1.5-5.0); LYMPH % 21.7 % (24.0-44.0); MEAN CORPUSCULAR HEMOGLOBIN 32.4 pg (27.0-33.0); MEAN CORPUSCULAR HGB CONC 33.6 g/dl (32.0-36.5); MEAN CORPUSCULAR VOLUME 96.4 fl (80.0-96.0); MONO # 0.7 10^3/uL (0.0-0.8); MONO % 5.4 % (2.0-8.0); NEUTROPHILS # 8.9 10^3/uL (1.5-8.5); NEUTROPHILS % 70.7 % (36.0-66.0); PLATELET COUNT, AUTOMATED 440 10^3/uL (150-450); RED BLOOD COUNT 4.11 10^6/uL (4.00-5.40); WHITE BLOOD COUNT 12.6 10^3/uL (4.0-10.0)
[2023-09-05 17:39] LABS: ERYTHROCYTE SEDIMENTATION RATE 9 mm/hr (0-30)
[2023-09-05 17:46] LABS: URIC ACID 1.6 MG/DL (3.1-7.8)
[2023-09-05 17:48] LABS: C REACTIVE PROTEIN QUANTITATIV < 0.40 MG/DL (<1.0)
[2023-09-05 17:49] LABS: ALBUMIN 3.9 G/DL (3.2-5.2); ALKALINE PHOSPHATASE 50 U/L (46-116); ALT/SGPT 26 U/L (7.0-40); AST/SGOT 15 U/L (<34); BILIRUBIN,TOTAL 0.3 MG/DL (0.3-1.2); BLOOD UREA NITROGEN 26 MG/DL (9-23); CALCIUM LEVEL 9.3 MG/DL (8.3-10.6); CARBON DIOXIDE LEVEL 26 MMOL/L (20-31); CHLORIDE LEVEL 105 MMOL/L (98-107); CREATININE FOR GFR 0.87 MG/DL (0.55-1.30); GLOMERULAR FILTRATION RATE > 60.0 (>39); GLUCOSE, FASTING 102 MG/DL (74-106); POTASSIUM SERUM 4.2 MMOL/L (3.5-5.1); RHEUMATOID FACTOR QUANT < 3.5 IU/ML (<14); SODIUM LEVEL 140 MMOL/L (136-145); TOTAL PROTEIN 6.3 G/DL (5.7-8.2)
== END ==
LOC: M PLALAB 15:56
PROVIDERS: ATTEND Student in an Organized Health Care Education/Training Program
DX: M25.572 Pain in left ankle and joints of left foot (principal)

== ENCOUNTER → 2023-10-23 | Outpatient (CLI) | payer MEDICARE, OTHER ==
[2023-10-23 14:08] LABS: ALBUMIN 4.1 G/DL (3.2-5.2); BLOOD UREA NITROGEN 19 MG/DL (9-23); CALCIUM LEVEL 9.9 MG/DL (8.3-10.6); CARBON DIOXIDE LEVEL 28 MMOL/L (20-31); CHLORIDE LEVEL 104 MMOL/L (98-107); CREATININE FOR GFR 0.83 MG/DL (0.55-1.30); GLOMERULAR FILTRATION RATE > 60.0 (>39); GLUCOSE, FASTING 97 MG/DL (74-106); PHOSPHORUS LEVEL 3.8 MG/DL (2.4-5.1); POTASSIUM SERUM 4.3 MMOL/L (3.5-5.1); SODIUM LEVEL 138 MMOL/L (136-145)
== END ==
LOC: M PLALAB 11:52
PROVIDERS: ATTEND Internal Medicine Cardiovascular Disease
DX: R06.02 Shortness of breath (principal); R94.31 Abnormal electrocardiogram [ECG] [EKG]; I11.9 Hypertensive heart disease without heart failure

== ENCOUNTER → 2023-10-24 | Outpatient (CLI) | payer MEDICARE, OTHER | LOC: M EKG 13:06 | PROVIDERS: ATTEND Internal Medicine Cardiovascular Disease | DX: R00.2 Palpitations (principal) ==

== ENCOUNTER → 2023-10-26 | Outpatient (CLI) | payer MEDICARE, OTHER | LOC: M PLAIMG 08:44 | PROVIDERS: ATTEND Internal Medicine Cardiovascular Disease | DX: R06.02 Shortness of breath (principal); I11.9 Hypertensive heart disease without heart failure; I35.8 Other nonrheumatic aortic valve disorders ==

== ENCOUNTER 2024-02-12 20:52 | Emergency (ER) | payer MEDICARE, OTHER ==
[~2024-02-12] VITALS: Ht 165.1 cm; Wt 68.2 kg
[2024-02-13] MEDS: KETOROLAC 30 MG/ML 1ML VIAL IV ONE (00:06)
[2024-02-13 02:00] VITALS: BP 137/65
[2024-02-13 02:07] VITALS: TEMP 97.6; O2SAT 95
[2024-02-13] MEDS ORDERED: IBUPROFEN 800 MG TAB PO ONE (02:20)
[2024-02-13] MEDS: IBUPROFEN 800 MG TAB PO ONE (02:24)
[2024-02-14] MEDS ORDERED: OMEP40CA4 PO (18:21)
[2024-02-14] MEDS ORDERED: MULT-90 PO (18:21)
[2024-02-14] MEDS ORDERED: SPIR-10 PO (18:21)
[2024-02-14] MEDS ORDERED: VERA240C PO (18:21)
[2024-02-14] MEDS ORDERED: ATOR80TA59 PO (18:21)
[2024-02-14] MEDS ORDERED: LEXA1TAB PO (18:21)
[2024-02-14] MEDS ORDERED: ANAS1TAB2 PO (18:21)
[2024-02-14] MEDS ORDERED: CHLO125TA PO (18:21)
[2024-04-19] MEDS ORDERED: CHOL12508 PO (09:30)
[2024-04-19] MEDS ORDERED: PROB250C PO (09:30)
== END 2024-02-13 02:29 | disposition home or self-care (01) ==
LOC: M ED 20:52
DX: S62.303A Unspecified fracture of third metacarpal bone, left hand, initial encounter for closed fracture (principal); S62.305A Unspecified fracture of fourth metacarpal bone, left hand, initial encounter for closed fracture; Y92.410 Unspecified street and highway as the place of occurrence of the external cause; Y93.9 Activity, unspecified; Y99.9 Unspecified external cause status; W10.1XXA Fall (on)(from) sidewalk curb, initial encounter; I10 Essential (primary) hypertension; E78.5 Hyperlipidemia, unspecified; K21.9 Gastro-esophageal reflux disease without esophagitis; Z87.891 Personal history of nicotine dependence; Z88.8 Allergy status to other drugs, medicaments and biological substances; Z91.048 Other nonmedicinal substance allergy status; Z79.1 Long term (current) use of non-steroidal anti-inflammatories (NSAID); Z79.810 Long term (current) use of selective estrogen receptor modulators (SERMs); Z79.899 Other long term (current) drug therapy
CPT/HCPCS: 70450; 71250; 72125; 73130; 73560; 96374; 99285; J1885

== ENCOUNTER 2024-02-14 10:05 | Observation (INO) | payer MEDICARE, OTHER ==
[~2024-02-14] VITALS: Ht 165.1 cm; Wt 70.8 kg
[2024-02-14 11:10] LABS: BASO % 0.5 % (0.0-1.0); EOS # 0.1 10^3/uL (0.0-0.5); EOS % 1.5 % (0.0-3.0); HEMATOCRIT 38.7 % (36.0-47.0); HEMOGLOBIN 13.2 g/dl (12.0-15.5); LYMPH # 1.5 10^3/uL (1.5-5.0); LYMPH % 20.7 % (24.0-44.0); MEAN CORPUSCULAR HEMOGLOBIN 32.5 pg (27.0-33.0); MEAN CORPUSCULAR HGB CONC 34.1 g/dl (32.0-36.5); MEAN CORPUSCULAR VOLUME 95.3 fl (80.0-96.0); MONO # 0.5 10^3/uL (0.0-0.8); MONO % 6.3 % (2.0-8.0); NEUTROPHILS # 5.2 10^3/uL (1.5-8.5); NEUTROPHILS % 70.7 % (36.0-66.0); PLATELET COUNT, AUTOMATED 353 10^3/uL (150-450); RED BLOOD COUNT 4.06 10^6/uL (4.00-5.40); WHITE BLOOD COUNT 7.4 10^3/uL (4.0-10.0)
[2024-02-14] MEDS: diazePAM 10MG/2ML SYRINGE IV STA (11:30)
[2024-02-14] MEDS ORDERED: ISOVUE-370 76% 100ML VIAL As Ordered ONE (11:50)
[2024-02-14 12:50] LABS: BLOOD UREA NITROGEN 12 MG/DL (9-23); CALCIUM LEVEL 9.6 MG/DL (8.3-10.6); CARBON DIOXIDE LEVEL 27 MMOL/L (20-31); CHLORIDE LEVEL 107 MMOL/L (98-107); CREATININE FOR GFR 0.68 MG/DL (0.55-1.30); GLOMERULAR FILTRATION RATE > 60.0 (>39); GLUCOSE, FASTING 109 MG/DL (74-106); POTASSIUM SERUM 4.5 MMOL/L (3.5-5.1); SODIUM LEVEL 139 MMOL/L (136-145)
[2024-02-14] MEDS: NS 500 ML IV ONE (13:35)
[2024-02-14] MEDS: IBUPROFEN 400MG TAB PO ONE (13:42)
[2024-02-14] MEDS: diazePAM 10MG/2ML SYRINGE IV ONE (14:09)
[2024-02-14] MEDS ORDERED: MAALOX 30 ML SUSP *UDC PO PRN (16:15)
[2024-02-14] MEDS ORDERED: MOM 30ML SUSPENSION UDC PO PRN (16:15)
[2024-02-14] MEDS: MECLIZINE 25 MG TABLET PO ONE (16:37)
[2024-02-14] MEDS ORDERED: LEXA1TAB PO (18:21)
[2024-02-14] MEDS ORDERED: ATOR80TA59 PO (18:21)
[2024-02-14] MEDS ORDERED: MULT-90 PO (18:21)
[2024-02-14] MEDS ORDERED: ANAS1TAB2 PO (18:21)
[2024-02-14] MEDS ORDERED: VERA240C PO (18:21)
[2024-02-14] MEDS ORDERED: CHLO125TA PO (18:21)
[2024-02-14] MEDS ORDERED: SPIR-10 PO (18:21)
[2024-02-14] MEDS ORDERED: OMEP40CA4 PO (18:21)
[2024-02-14 18:24] VITALS: BP 134/75; TEMP 97; O2SAT 98
[2024-02-14] MEDS ORDERED: HOME MED LIST COMPLETE! XX SCH (18:30)
[2024-02-14 20:00] VITALS: BP 131/75; TEMP 97.3; O2SAT 98
[2024-02-15 04:00] VITALS: BP 120/69; TEMP 97.7; O2SAT 98
[2024-02-15 06:32] LABS: BLOOD UREA NITROGEN 12 MG/DL (9-23); CALCIUM LEVEL 9.2 MG/DL (8.3-10.6); CARBON DIOXIDE LEVEL 28 MMOL/L (20-31); CHLORIDE LEVEL 106 MMOL/L (98-107); CREATININE FOR GFR 0.81 MG/DL (0.55-1.30); GLOMERULAR FILTRATION RATE > 60.0 (>39); GLUCOSE, FASTING 85 MG/DL (74-106); POTASSIUM SERUM 3.8 MMOL/L (3.5-5.1); SODIUM LEVEL 139 MMOL/L (136-145)
[2024-02-15] MEDS: ENOXAPARIN 40MG/0.4ML SYRINGE (J1650 PER 10MG) SC SCH (08:57)
[2024-02-15] MEDS: ACETAMINOPHEN TAB 650MG DOSE (2X325MG) PO PRN (08:59)
[2024-02-15 09:00] VITALS: BP_SYST 128; BP_SYST 140; BP_SYST 144; BP_DIAS 81; BP_DIAS 82; BP_DIAS 89
[2024-02-15] MEDS: SPIRONOLACTONE 12.5MG PER 1/2 TABLET PO SCH (11:07)
[2024-02-15] MEDS: IBUPROFEN 600MG TAB PO PRN (11:08)
[2024-02-15] MEDS: CHLORTHALIDONE 12.5MG PER 1/2 TABLET PO SCH (11:21)
[2024-02-15] MEDS: VERAPAMIL 120MG SR TAB PO SCH (11:22)
[2024-02-15 12:00] VITALS: BP 127/83; TEMP 97.7; O2SAT 98
[2024-02-15] MEDS ORDERED: ONDANSETRON 4MG 2ML VIAL IV PRN (12:30)
[2024-02-15 20:00] VITALS: BP 120/69; TEMP 97.3; O2SAT 98
[2024-02-15] MEDS: ATORVASTATIN 20 MG TAB PO SCH (20:20)
[2024-02-15] MEDS: ESCITALOPRAM OXALATE 10 MG TAB (LEXAPRO) PO SCH (20:20)
[2024-02-16 05:00] VITALS: BP 113/61; TEMP 97.5; O2SAT 98
[2024-02-16 08:21] VITALS: BP 125/75
[2024-02-16] MEDS: ASPIRIN 81MG CHEW TABLET PO SCH (08:22)
[2024-02-16] MEDS ORDERED: ONDA-83 PO (08:57)
[2024-02-16] MEDS ORDERED: MECL-209 PO (08:57)
[2024-04-19] MEDS ORDERED: CHOL12508 PO (09:30)
[2024-04-19] MEDS ORDERED: PROB250C PO (09:30)
== END 2024-02-16 11:10 | disposition home or self-care (01) ==
LOC: EDBD 10:05 → M ED 10:05 → INTOOBSV 16:12 → M ED INP 16:12 → M MSPAV 18:18
PROVIDERS: ADMIT Student in an Organized Health Care Education/Training Program; ATTEND Student in an Organized Health Care Education/Training Program
DX: H81.10 Benign paroxysmal vertigo, unspecified ear (principal); R11.10 Vomiting, unspecified; D35.01 Benign neoplasm of right adrenal gland; D35.02 Benign neoplasm of left adrenal gland; E04.1 Nontoxic single thyroid nodule; K57.30 Diverticulosis of large intestine without perforation or abscess without bleeding; R26.81 Unsteadiness on feet; Z85.3 Personal history of malignant neoplasm of breast; M85.80 Other specified disorders of bone density and structure, unspecified site; M19.90 Unspecified osteoarthritis, unspecified site; S62.303A Unspecified fracture of third metacarpal bone, left hand, initial encounter for closed fracture; S62.305A Unspecified fracture of fourth metacarpal bone, left hand, initial encounter for closed fracture; S09.93XA Unspecified injury of face, initial encounter; Y92.410 Unspecified street and highway as the place of occurrence of the external cause; Y93.9 Activity, unspecified; Y99.9 Unspecified external cause status; W10.1XXA Fall (on)(from) sidewalk curb, initial encounter; I10 Essential (primary) hypertension; E78.5 Hyperlipidemia, unspecified; L21.9 Seborrheic dermatitis, unspecified; Z87.891 Personal history of nicotine dependence; Z88.8 Allergy status to other drugs, medicaments and biological substances; Z91.048 Other nonmedicinal substance allergy status; Z79.1 Long term (current) use of non-steroidal anti-inflammatories (NSAID); Z79.810 Long term (current) use of selective estrogen receptor modulators (SERMs); Z79.899 Other long term (current) drug therapy; Z79.82 Long term (current) use of aspirin
CPT/HCPCS: 36415; 70544; 70551; 74177; 74178; 76536; 80048; 83735; 85025; 93005; 96361; 96372; 96374; 96376; 97112; 97116; 97161; 97165; 97535; 99285; G0378; J1650; J3360; Q9967

== ENCOUNTER 2024-02-20 13:46 | Outpatient (RCR) | payer MEDICARE, OTHER ==
[~2024-02-20 13:46] MED LIST changes: +ANAS1TAB2 PO; +ATOR80TA59 PO; +LEXA1TAB PO; +MECL-209 PO; +MULT-90 PO; +OMEP40CA4 PO; +ONDA-83 PO; +VERA240C PO
== END 2024-02-25 ==
LOC: M PT 13:46
PROVIDERS: ATTEND Student in an Organized Health Care Education/Training Program
DX: R42 Dizziness and giddiness (principal)

== ENCOUNTER 2024-02-26 14:01 | Outpatient (RCR) | payer MEDICARE, OTHER | END 2024-03-27 | LOC: M PT 14:01 | PROVIDERS: ATTEND Student in an Organized Health Care Education/Training Program | DX: R42 Dizziness and giddiness (principal) ==

== ENCOUNTER → 2024-03-15 | Outpatient (REF) | payer MEDICARE, OTHER | LOC: M LAB REF 13:06 | PROVIDERS: ATTEND Internal Medicine | DX: I10 Essential (primary) hypertension (principal) ==

== ENCOUNTER → 2024-03-21 | Outpatient (REF) | payer MEDICARE, OTHER | LOC: M LAB REF 12:19 | PROVIDERS: ATTEND Internal Medicine | DX: E27.8 Other specified disorders of adrenal gland (principal) ==

== ENCOUNTER → 2024-03-25 | Outpatient (CLI) | payer MEDICARE, OTHER | LOC: M PLARAD 09:36 | PROVIDERS: ATTEND Internal Medicine | DX: E27.8 Other specified disorders of adrenal gland (principal); C50.812 Malignant neoplasm of overlapping sites of left female breast | CPT/HCPCS: 78815; A9552 ==

== ENCOUNTER 2024-05-08 12:18 | Day surgery (SDC) | payer MEDICARE, OTHER ==
[~2024-05-08] VITALS: Ht 165.1 cm; Wt 69.4 kg
[~2024-05-08 12:18] MED LIST changes: +CHOL12508 PO; +PROB250C PO
[2024-05-08] MEDS: NS 1,000 ML IV ONE (12:40)
[2024-05-08] MEDS ORDERED: LIDOCAINE 2% 100MG/5ML SDV (FOR ANES.) As Ordered ONE (13:38)
[2024-05-08] MEDS ORDERED: fentaNYL 100 MCG/2 ML INJECTION As Ordered ONE (13:38)
[2024-05-08] MEDS ORDERED: propofoL 200 MG/20 ML VIAL As Ordered ONE (13:39)
[2024-05-08 14:25] VITALS: TEMP 98
[2024-05-08 14:38] VITALS: BP 141/75; O2SAT 98
== END 2024-05-08 14:38 | disposition home or self-care (01) ==
LOC: M OPP 12:18
PROVIDERS: ATTEND Internal Medicine Gastroenterology
DX: K22.2 Esophageal obstruction (principal); K44.9 Diaphragmatic hernia without obstruction or gangrene; R13.10 Dysphagia, unspecified; I10 Essential (primary) hypertension; Z79.02 Long term (current) use of antithrombotics/antiplatelets; Z79.1 Long term (current) use of non-steroidal anti-inflammatories (NSAID); Z79.82 Long term (current) use of aspirin; Z79.811 Long term (current) use of aromatase inhibitors; Z88.8 Allergy status to other drugs, medicaments and biological substances; Z91.048 Other nonmedicinal substance allergy status
CPT/HCPCS: 43249; J3010

== ENCOUNTER → 2024-05-09 | Outpatient (REF) | payer MEDICARE, OTHER | LOC: M LAB REF 16:44 | PROVIDERS: ATTEND Internal Medicine | DX: Z79.899 Other long term (current) drug therapy (principal) ==

== ENCOUNTER → 2024-09-23 | Outpatient (CLI) | payer MEDICARE, OTHER ==
[~2024-09-23] MED LIST changes: +ISOVUE-370 76% 100ML VIAL As Ordered ONE
== END ==
LOC: M RAD 13:56
PROVIDERS: ATTEND Internal Medicine
DX: E27.8 Other specified disorders of adrenal gland (principal)
CPT/HCPCS: 74177; Q9967

== ENCOUNTER → 2024-10-07 | Outpatient (CLI) | payer MEDICARE, OTHER ==
[~2024-10-07] MED LIST changes: -ISOVUE-370 76% 100ML VIAL As Ordered ONE
== END ==
LOC: M RAD 14:39
PROVIDERS: ATTEND Internal Medicine
DX: E04.1 Nontoxic single thyroid nodule (principal)

== ENCOUNTER → 2024-10-10 | Outpatient (REF) | payer MEDICARE, OTHER | LOC: M LAB REF 16:33 | PROVIDERS: ATTEND Internal Medicine | DX: N39.46 Mixed incontinence (principal); N39.0 Urinary tract infection, site not specified ==

== ENCOUNTER → 2024-11-08 | Outpatient (REF) | payer MEDICARE, OTHER ==
[~2024-11-08] MED LIST changes: +DENO60SY2 SQ; -PROL60SO SQ
[2024-11-08 15:46] LABS: PHOSPHORUS LEVEL 4.3 MG/DL (2.4-5.1)
== END ==
LOC: M LAB REF 12:29
PROVIDERS: ATTEND Internal Medicine
DX: M81.0 Age-related osteoporosis without current pathological fracture (principal)

== ENCOUNTER → 2024-11-19 | Outpatient (CLI) | payer MEDICARE, OTHER | LOC: M WHC 10:47 | PROVIDERS: ATTEND Internal Medicine Hematology & Oncology | DX: Z85.3 Personal history of malignant neoplasm of breast (principal); Z79.899 Other long term (current) drug therapy; M85.89 Other specified disorders of bone density and structure, multiple sites ==

== ENCOUNTER → 2025-04-03 | Outpatient (REF) | payer MEDICARE, OTHER ==
[~2025-04-03] MED LIST changes: -AMBI5TAB PO; +ZOLP-532 PO
== END ==
LOC: M LAB REF 14:41
PROVIDERS: ATTEND Internal Medicine
DX: N39.0 Urinary tract infection, site not specified (principal)

== ENCOUNTER → 2025-05-20 | Outpatient (REF) | payer MEDICARE, OTHER ==
[~2025-05-20] MED LIST changes: -CHOL12508 PO; -IBUP1TAB6 PO; +SFHIBU600 PO; -VERA120C3 PO; +VERA120C9 PO; +[UNRECOGNIZED DRUG - CODE] PO
== END ==
LOC: M LAB REF 12:17
PROVIDERS: ATTEND Internal Medicine
DX: M81.0 Age-related osteoporosis without current pathological fracture (principal); Z79.899 Other long term (current) drug therapy

== ENCOUNTER → 2025-07-10 | Outpatient (REF) | payer MEDICARE, OTHER | LOC: M LAB REF 14:18 | PROVIDERS: ATTEND Nurse Practitioner Adult Health | DX: R30.0 Dysuria (principal) ==